=== PATIENT | male | born 1985 | race Caucasian/White ===

== ENCOUNTER 2017-10-15 19:31 | Emergency (ER) | payer OTHER ==
[~2017-10-15] VITALS: Ht 182.9 cm; Wt 79.4 kg
[2017-10-15 20:17] LABS: ABSOLUTE BASOPHIL COUNT 0 /CUMM (0.0-0.2); ABSOLUTE EOSINOPHIL COUNT 0.1 /CUMM (0.0-0.7); ABSOLUTE GRANULOCYTE CT 3.4 /CUMM (1.4-6.5); ABSOLUTE LYMPH COUNT 1.9 /CUMM (1.2-3.4); ABSOLUTE MONOCYTE COUNT 0.6 /CUMM (0.10-0.60); BASOPHIL % 0.6 % (0.0-2.0); EOSINOPHIL % 1.7 % (0-5); GRANULOCYTE % 56.4 % (42.2-75.2); HEMATOCRIT 44.9 % (42-52); MEAN CORPUSCULAR HGB 29.5 PG (27.0-31.0); MEAN CORPUSCULAR HGB CONC 33.7 G/DL (33.0-37.0); MEAN CORPUSCULAR VOLUME 87.7 FL (80.0-94.0); MEAN PLATELET VOLUME 8.1 FL (7.4-10.4); PLATELET COUNT 187 /CUMM (130-400); RBC DISTRIBUTION WIDTH 12.6 % (11.5-14.5); RED BLOOD CELL CT 5.13 /CUMM (4.70-6.10); WHITE BLOOD CELL COUNT 6.1 /CUMM (4.8-10.8)
--- NOTE | 2017-10-15 21:13 | ED GENERAL ADULT ---
History of Present Illness General Chief Complaint: Chest Pain Stated Complaint: PT IS HAVING CHEST PAIN Source: patient Exam Limitations: no limitations Vital Signs & Intake/Output Vital Signs & Intake/Output Vital Signs Date Time Temp Pulse Resp B/P B/P Pulse O2 O2 Flow FiO2 Mean Ox Delivery Rate 10/16 2139 98.5 63 18 138/79 100 Room Air 10/15 2009 97.7 71 18 134/76 100 Room Air ED Intake and Output 10/16 0000 10/15 1200 Intake Total Output Total Balance Patient 175 lb Weight Weight Reported by Patient Measurement Method HISTORY OF MIGRAINE Allergies Coded Allergies: Penicillins (RASH 10/15/17) Triage Note: PT PRESENTS TO THE ER C/O HEART PALPITATIONS AND ANXIETY. PT STATES IT IS CAUSING MILD CHEST PAIN 08/31. PER PT ONSET OF CHEST DISCOMFORT 3-4 WEEKS AGO. Triage Nurses Notes Reviewed? yes Onset: Abrupt Duration: day(s): Timing: recent history HPI: 10/15/17 10 PM 31-year-old male presents emergency department complaining of palpitations. Patient states had intermittent palpitations over the past week. He saw his primary care doctor. He says he's had a Holter monitor recently but does not know the results. He denies any chest pain. No shortness of breath. He says he does have a history of gastroesophageal reflux; he takes ranitidine. Past History Travel History Traveled to [place] past 21 day No Medical History Any Pertinent Medical History? see below for history Gastrointestinal: ACID REFLUX Surgical History Surgical History: none Psychosocial History What is your primary language [place] Tobacco Use: Never used Family History Hx Contributory? No (NO SURGERY OR) Review of Systems Review of Systems Constitutional: Denies: fever. EENTM: Denies: visual changes. Respiratory: Denies: short of breath. Cardiovascular: Reports: palpitations. Denies: chest pain. GI: Denies: abdominal pain. Genitourinary: Reports: no symptoms. Musculoskeletal: Reports: no symptoms. Skin: Reports: no symptoms. Neurological/Psychological: Reports: no symptoms. Hematologic/Endocrine: Reports: no symptoms. Immunologic/Allergic: Reports: no symptoms. Physical Exam Physical Exam General Appearance: well developed/nourished, alert, awake, anxious, mild distress Head: atraumatic, normal appearance Eyes: Bilateral: normal appearance, PERRL, EOMI. Ears, Nose, Throat: normal pharynx, normal ENT inspection Neck: normal inspection, supple, full range of motion Respiratory: normal breath sounds, chest non-tender, no respiratory distress Cardiovascular: regular rate/rhythm Peripheral Pulses: 4+ radial (R), 4+ radial (L) Gastrointestinal: soft, non-tender Back: normal range of motion Extremities: no edema Neurologic/Psych: no motor/sensory deficits, awake, alert, oriented x 3 Skin: intact, normal color, warm/dry Core Measures ACS in differential dx? No CVA/TIA Diagnosis: No Sepsis Present: No Sepsis Focused Exam Completed? No Progress Differential Diagnoses I considered the following diagnoses in my evaluation of the patient: [Acute coronary syndrome, myocarditis, electrolyte derangement, pulmonary embolism, valvular heart disease] Plan of Care: Orders Procedure Date/time Status EKG 10/15 2202 Active Add-on Test (ER Only) 10/15 2148 Active THYROID STIMULATING HORMONE 10/15 2009 Complete TROPONIN LEVEL 10/15 2004 Complete COMPREHENSIVE METABOLIC PANEL 10/15 2004 Complete CBC WITHOUT DIFFERENTIAL 10/15 2004 Complete EKG 10/15 193 Active Laboratory Tests 10/15/17 2010: Anion Gap 12, Estimated GFR > 60, BUN/Creatinine Ratio 15.6, Glucose 102 H, Calcium 9.7, Total Bilirubin 0.6, AST 24, ALT 49, Alkaline Phosphatase 56, Troponin I < 0.01, Total Protein 7.5, Albumin 4.3, Globulin 3.2, Albumin/ Globulin Ratio 1.3, TSH 1.560, CBC w Diff NO MAN DIFF REQ, RBC 5.13, MCV 87.7, MCH 29.5, MCHC 33.7, RDW 12.6, MPV 8.1, Gran % 56.4, Lymphocytes % 31.2, Monocytes % 10.1 H, Eosinophils % 1.7, Basophils % 0.6, Absolute Granulocytes 3.4, Absolute Lymphocytes 1.9, Absolute Monocytes 0.6, Absolute Eosinophils 0.1, Absolute Basophils 0 Initial ED EKG: NSR, nonspecific ST T wave chg, PJC Repeat EKG: unchanged Departure Departure Disposition: HOME OR SELF CARE Condition: Stable Clinical Impression Primary Impression: Palpitations Referrals: Bryan Angel DO (PCP/Family) Departure Forms: Customer Survey General Discharge Information Comments 10/15/17 Patient's labs are unremarkable. EKG #1 showed occasional PJC'S VS PVC'S EKG # 2 is normal. He was referred to the psychological tests sales agent. PERC score is low risk. Labs unremarkable. He never had any chest pain. Critical Care Note Critical Care Note Critical Care Time: non-applicable
[2017-10-15 21:40] VITALS: BP 138/79
== END 2017-10-15 22:40 ==
LOC: ERH 19:31
PROVIDERS: Emergency Medicine
DX: R00.2 Palpitations (principal)
CPT/HCPCS: 93005; 93010